=== PATIENT | female | born 1950 | race Caucasian/White ===

== ENCOUNTER 2016-10-21 09:02 | Outpatient (CLI) | END 2016-10-21 09:03 | disposition home or self-care (01) | LOC: LAB 09:02 | PROVIDERS: ATTEND Family Medicine | DX: K92.1 Melena (principal) | CPT/HCPCS: 87015; 87045; 87899 ==

== ENCOUNTER 2017-01-06 07:00 | Day surgery (SDC) ==
[~2017-01-06 07:00] MED LIST: AK-DILATE 10% OPTH SOL OP PRN; BRIMONIDINE TARTRATE 0.2% OPTH SOL OP PRN; MOXIFLOXACIN 150 MCG/0.1 ML-BSS INJ (SURGERY) IO ONE; NIRAVAM ODT (SURGERY) PO PRN; OMIDRIA 1-0.3% IN BSS BAG IO ONE; PRED FORTE 1% OPTH SOL OP ONE; ZOFRAN 4 MG/2 ML IVP ONE
[2017-01-06] MEDS: TETRACAINE 0.5% UNIT-DOSE OP PRN ×2 (07:15→08:36)
[2017-01-06] MEDS: BETADINE OPTH PREP OP PRN ×2 (07:16→08:37)
[2017-01-06] MEDS: CYCLOGYL 2% OPTH OP PRN ×3 (07:17→07:25)
[2017-01-06] MEDS ORDERED: LIDOCAINE 1%/PHENYLEPHRINE 1.5% BSS (SURGERY) IO ONE (08:00)
[2017-01-06] MEDS ORDERED: SUBLIMAZE ONE (08:35)
[2017-01-06] MEDS ORDERED: DIPRIVAN 20 ML VIAL IVP ONE (08:35)
[2017-01-06] MEDS ORDERED: VERSED ONE (08:35)
[2017-01-06] MEDS ORDERED: TORADOL ONE (08:35)
[2017-01-06 16:41] VITALS: BP 136/52; TEMP 96.5
== END 2017-01-06 09:20 | disposition home or self-care (01) ==
LOC: SURG 07:00
PROVIDERS: ATTEND Ophthalmology
DX: H25.811 Combined forms of age-related cataract, right eye (principal)

== ENCOUNTER 2017-04-02 08:43 | Outpatient (CLI) ==
--- NOTE | 2017-04-02 10:48 | MRI ---
EXAM: MRI of the right knee without contrast COMPARISON: None available. HISTORY: Right knee pain. TECHNIQUE: Multiplanar noncontrast MR images of the right knee were acquired using a 1.2 Ashley magne t. Several sequences are mildly limited by patient motion artifact on the coronal T2W fat saturation sequence was repeated. FINDINGS: No recent radiographs of the right knee are available for comparison and radiographic galen elation is recommended. There is no evidence of a surfacing tear of the medial or lateral menisci. Intact anterior and posterior cruciate ligament fibers are identified. Question mucoid degeneration versus minimal sprain of the distal fibers of the anterior cruciate ligament. The medial collateral ligament, lateral collateral ligament complex and posterolateral corner ligaments are intact. Minima l distal quadriceps tendinosis. Patellar tendon is intact. Subcutaneous edema anteriorly. No abnor mal subluxation of the patella. There is thinning and fissuring of the cartilage of the patella with full-thickness defects measuring 0.7 x 0.4 cm along the superior portion of the median ridge with small subchondral cyst. There is a lso a full-thickness cartilage defect along the inferolateral portion of the opposing articular surfa ce of the trochlear groove measuring 1.7 x 0.7 cm with extensive subchondral cystic change/sclerosis at that level. Mild thinning of the cartilage in the medial compartment. Mild thinning of the carti jaret along the posterior portion of the lateral tibial plateau. There is no evidence of an acute fra cture or osteomyelitis. Small joint effusion. Slit-like popliteal cyst. No osteochondral body iden tified. IMPRESSION: 1. Tricompartmental osteoarthrosis with most severe changes in the patellofemoral compartment as jose cribed. 2. Small joint effusion. Slit-like popliteal cyst. 3. Intact menisci. 4. Mucoid degeneration versus minimal sprain of the anterior cruciate ligament with intact fibers id entified. 5. Minimal distal quadriceps tendinosis. Subcutaneous edema anteriorly without a drainable fluid co llection.
--- NOTE | 2017-04-02 18:29 | MRI ---
EXAM: MRI lumbar spine without IV contrast. DATE: 04/02/2017. HISTORY: Sciatica. Lumbar back pain and right leg pain. TECHNIQUE: Sagittal and axial T1W and T2W sequences of the lumbar spine along with sagittal IR and c oronal T2W sequences were obtained using 1.2 Ashley magnet. No IV contrast. COMPARISON: None. FINDINGS: There are five [id number] lumbar vertebra. Mild leftward curvature of the lumbar spi ne is observed. A 1.7 mm anterior subluxation of L2 relative to L3, and the 2.7 mm anterolisthesis o f L5 relative to L4, and 2.8 mm anterolisthesis of S1 relative to L5 are observed. There is also jose roximately 5 mm left lateral subluxation of L3 relative to L4. No other subluxation, acute fracture, osseous malignancy, or pars interarticularis defect is demonstrated. Lumbar vertebrae normal in hei ght. Degenerative endplate changes and patchy areas of fatty infiltration cause bone marrow heteroge neity. Small and prominent osteophytes are noted throughout the lumbar spine. Chronic Schmorl's nod es are seen at L1, L2, L3, and L4. T2W/T1W bright, 11 x 12 mm focus in the L2 body is consistent wit h a benign hemangioma. Moderate L1-2, marked L3-4, marked L4-5, and moderate/marked L5-S1 disc space narrowing is detected. Broad areas of T2W/T1W bright signal within bilateral sacral ala likely repr esent fatty infiltration. No acute sacroiliitis is apparent. Conus medullaris terminates at L1. Vi sible spinal cord is normal. No retroperitoneal lymphadenopathy, paraspinal mass, or aortic aneurysm is identified. Psoas muscles are normal. There is mild bilateral posterior paraspinal muscle atrophy. Visible portions of the l iver, gallbladder, spleen, adrenal glands, and kidneys are normal. Segmental analysis: T11-12: Normal. T12-L1: Small posterior disc bulge does not cause conus compression, central stenosis or foraminal s tenosis. L1-2: Small concentric disc bulge, mild bilateral facet arthropathy, and mild ligamentum flavum hype rtrophy cause mild central canal stenosis, mild right foraminal stenosis, and minor left foraminal en croachment. L2-3: Small concentric disc bulge (asymmetrically prominent in the right foramen to far lateral ellen on), moderate facet arthropathy, and marked ligamentum flavum hypertrophy cause marked central canal stenosis and mild right foraminal stenosis. L3-4: Moderate concentric disc bulge, moderate bilateral facet arthropathy, and moderate ligamentum flavum hypertrophy cause marked central canal stenosis, moderate right foraminal stenosis, and minor left foraminal narrowing. Right L3 nerve root contacts disc bulge near the lateral margin of the for amen. L4-5: Minor anterior subluxation of L5, moderate concentric disc bulge, mild bilateral facet arthrop athy, and moderate ligamentum flavum hypertrophy cause triangulation of the canal, moderate/marked ri ght foraminal stenosis, and marked left foraminal stenosis. Each L4 nerve root contacts the disc bul ge near the lateral margin of the foramen. L5-S1: Minor anterior subluxation of S1, small concentric disc bulge, and mild facet arthropathy cau se marked bilateral foraminal stenosis, with each L5 nerve root contacting disc bulge/osteophyte at t he foramen. No central canal stenosis. IMPRESSIONS: 1. Lumbar spine mild rotatory levoscoliosis, moderate spondylosis, mild/moderate facet arthropathy, multiple mild subluxations, and multilevel DDD. 2. Multilevel central canal stenoses (L1-2: Mild. L2-3: Marked. L3-4: Marked. L4-5: Minor). 3. Multilevel foraminal stenoses. Right L2, both L4, and both L5 nerve roots are compromised near t he foramen and may be sources for pain/radiculopathy. 4. L-spine small, chronic Schmorl's nodes. 5. Benign hemangioma in the L2 vertebra.
== END 2017-04-02 08:44 | disposition home or self-care (01) ==
LOC: RAD 08:43
PROVIDERS: ATTEND Family Medicine
DX: M54.31 Sciatica, right side (principal); M25.561 Pain in right knee

== ENCOUNTER 2017-04-20 08:25 | Outpatient (RCR) | payer OTHER ==
--- NOTE | 2017-04-22 08:54 | RS.OPPTEV2 ---
Date of Note: 04/20/17 Visit #: 1 Date of Evaluation: 04/20/17 Payer Source: MEDICARE Surgery Performed?: No Treatment Diagnosis: spinal stenosis of lumbar region with neurogenic claudication History of Condition/Mechanism of Injury:: pt states that issue began 2 months ago. pt reports pain is primarily in RLE from knee to ankle. Prior Level of Function.....Patient was independent with: Self Care, Caregiving , Ambulation/Mobility, Community Integration/Access Functional Limitations: Carrying, Standing, Bending, Ambulation Current Subjective/complaints:: pt states she has not had any injury to her knowledge. She c/o pain in RLE knee to ankle and occasionally hurts into R hip. States she is unable to stand for long periods of time or walk longer distances. pt also states she is unable to sleep longer than a couple of hours at a time due to pain. Treatment Side (optional): Right *Precautions: n/a Medical History Medical History: Hypertension, Arthritis Surgical History: Hysterectomy Surgical History Comments:: thyroid sx, Smoking Status: Never smoker Diagnostic Testing/Imaging:: MRI of lumbar spine: mild rotatory levoscoliosis, moderate spondylosis, mult. mild subluxations and multilevel DDD. multi level central canal stenosis, multilevel foraminal stenosis, benign hemangioma in L2 vertebra Hx Home Medications: diclofenac, pravastatin, lisinopril/HCTZ, zantac, fish oil , calcium, vit D3 Patient's Goals: decrease pain Pain Assessment - Pain Description Pain Location: R Lower Leg Pain Description: Burning, Aching Current Pain Intensity: 0 at rest, 4 with activity Functional Outcome Measure Oswestry LBP: 19 (38%) LE Functional Scale: 46 (42%) - G Codes & Severity Modifier G Codes & Modifier: mobility current CK. mobility goal CI Source of G Code score: LE functional index Observation - Observation Inspection: hamstring tightness R worse than L Posture: Forward Head, Rounded Shoulders Handedness: Right Gait - Gait Pattern General Gait Pattern Observation: No Deviations/Normal General Range of Motion: ROM WFL'S Muscle Strength: BUE 5/5. RLE hip flex 4+/5, knee flex/ext 4+/5 with pain. LLE 5/5 - ROM Lumbar Flexion: Hand reach to Mid-Shins Sidebending to Left: Reach to Lateral Joint Line Sidebending to Right: Reach to Lateral Joint Line Lumbar Spine ROM Limitations: Soft Tissue Tightness, Pain - Strength Trunk Extension: 5 Normal Trunk Flexion: 4 Good Trunk Lateral Flexion: 4- Good- Trunk Rotation: 4- Good- - Special Tests CRISTINA Test: Negative Left, Negative Right SLR Test: Negative Left, Negative Right Palpation Palpation Findings: Tenderness (R lower leg) Sensation - Sensation Right Upper Extremity: Intact/Normal Left Upper Extremity: Intact/Normal Right Lower Extremity: Impaired Left Lower Extremity: Intact/Normal Comments: reports n/t R lat calf Balance - Sitting Balance Static Sitting Balance: Normal Dynamic Sitting Balance: Normal - Standing Balance Static Standing Balance: Normal Dynamic Standing Balance: Normal - Heat/Cryotherapy Treatment: Cryotherapy Comments:: lumbar area Interventions - Exercise/Activities/Manual Therapy Exercises/Activities: pt performed pelvic tilts, knee to chest, isometric hip flex, isometric hip add Manual Therapy: n/a HOME EXERCISE PROGRAM: pt given written HEP including pelvic tilts, isometric hip flex, single knee to chest, double knee to chest, isometric hip add. - Charges Timed Code Treatment Minutes: 52 Total Treatment Time: 60 Procedures billed for this date of service:: eval med CP EVALUATION COMPLEXITY LEVEL EVALUATION COMPLEXITY LEVEL: HISTORY: Medium (OA, HTN, LBP), EXAM OF BODY SYSTEMS: Medium (neuro, musculo, pain), CLINICAL PRESENTATION: Medium (evolving) , CLINICAL DECISION MAKING: Medium Assessment Assessment: pt presents with radicular pain into RLE especially knee to ankle as well as R hip. Pain is limiting patients ability to perform normal daily activities due to unable to tolerate standing for long amounts of time or walking distances. pt also presents with hamstring tightness, and decreased strength. Patient Education: Home Exercise Program, Education of Plan of Care Rehab Potential: Good Short Term Goals Goal #1: pt rate pain with activity < 4/10 Goal to be met by: 05/04/17 Goal #2: pt demonstrate decreased hamstring tightness to WFL's Goal to be met by: 05/04/17 Assisted Goals Goal #1: pt independent with HEP Goal to be met by: 05/18/17 Goal #2: Report increased tolerance for standing/walking to perform household task Goal to be met by: 05/18/17 Goal #3: pt rate pain <2/10 with activity Goal to be met by: 03/27/18 Goal #4: pt report ability to sleep 4-6 hours without interruption from leg pain Goal to be met by: 05/18/17 Plan - Treatment to be Provided Procedures: Therapeutic Exercises, Therapeutic Activity, Neuromuscular Rehab, Manual Therapy, Massage, Patient Education Modalities: Electrical Stimulation, Ultrasound/Phonophoresis, Class IV Laser, Cryotherapy, Hot Packs - Treatment Plan Frequency: 2 X week Duration: 4 weeks ORDER # VISITS AND/OR THROUGH DATE: 05/18/17 - Treatment Code (1) Spinal stenosis of lumbar region with neurogenic claudication Code(s): M48.06 - SPINAL STENOSIS, LUMBAR REGION * DO NOT USE * (2) Degeneration of lumbar intervertebral disc Code(s): M51.36 - OTHER INTERVERTEBRAL DISC DEGENERATION, LUMBAR REGION (3) Radicular leg pain Code(s): M54.10 - RADICULOPATHY, SITE UNSPECIFIED (4) Muscle tightness Code(s): M62.89 - OTHER SPECIFIED DISORDERS OF MUSCLE
== END 2017-04-21 ==
PROVIDERS: ATTEND Neurological Surgery
DX: M48.062 Spinal stenosis, lumbar region with neurogenic claudication (principal); M51.36 Other intervertebral disc degeneration, lumbar region

== ENCOUNTER 2017-05-12 09:00 | Outpatient (RCR) ==
--- NOTE | 2017-04-22 11:59 | RS.OPPTDN ---
Subjective Date of Note: 04/22/17 Visit #: 2 Date of Evaluation: 04/20/17 Payer Source: MEDICARE Treatment Diagnosis: spinal stenosis of lumbar region with neurogenic claudication Current Subjective/complaints:: Reports some discomfort in the lowback and hip, but c/c is aching in the lower legs. *Precautions: n/a Pain Assessment - Pain Description Pain Location: Lower legs, right greater than left Current Pain Intensity: mild to mod, increases at night - Treatment Modality: Electrical Stim Unattended Parameters/Method Applied: [id number] HVGC to 90p.v. with 4 large pads crossed current to the mid and lowback with HP prior to EX. Patient Position: Sitting - Heat/Cryotherapy Treatment: Hot Pack ([id number] with Estim ) Interventions - Exercise/Activities/Manual Therapy Exercises/Activities: Asssited stretching of the bilateral hamstrings, SKTC, and DKTC. Pelvic tilts, isometric hip flexion and isometric hip add. Ended with additional HS, piriformis, and short LTR stretch. Total minutes of Exercise: 15mins Manual Therapy: NA HOME EXERCISE PROGRAM: pelvic tilts, isometric hip flex, single knee to chest, double knee to chest, isometric hip add. Sitting lumbar flexion stretch with pillow in lap. - Charges Timed Code Treatment Minutes: 15mins Total Treatment Time: 40mins Procedures billed for this date of service:: HP, Estim unattended, EX Assessment: Patient motivated to work on HEP. Patient Education: Education of diagnosis, Body/Joint mechanics, Home Exercise Program, Home Safety, Activity Modification, Education of Plan of Care Comments: Patient education of dx, mechanics, safety with ADL's, and HEP. Patient demonstrates compliance with HEP?: Yes Short Term Goals Goal #1: pt rate pain with activity < 4/10 Goal to be met by: 05/04/17 Goal #2: pt demonstrate decreased hamstring tightness to WFL's Goal to be met by: 05/04/17 Underwear Trimmer Goals Goal #1: pt independent with HEP Goal to be met by: 05/18/17 Goal #2: Report increased tolerance for standing/walking to perform household task Goal to be met by: 05/18/17 Goal #3: pt rate pain <2/10 with activity Goal to be met by: 05/18/17 Goal #4: pt report ability to sleep 4-6 hours without interruption from leg pain Goal to be met by: 05/18/17 Plan PLAN OF CARE EXPIRES ON:: 05/18/17 ORDER # VISITS AND/OR THROUGH DATE: 05/18/17 PLAN: Progress with flexion exercise in attempt to reduce pain and radicular symptoms.
--- NOTE | 2017-04-27 14:56 | RS.OPPTDN ---
Subjective Date of Note: 04/27/17 Visit #: 3 Date of Evaluation: 04/20/17 Payer Source: MEDICARE Treatment Diagnosis: spinal stenosis of lumbar region with neurogenic claudication Current Subjective/complaints:: Patient reports she has noticed she is sleeping better at night. States she is working on HEP. *Precautions: n/a Pain Assessment - Pain Description Pain Location: Lowback and right lower leg Pain Description: Tightness, Aching Current Pain Intensity: mild - Treatment Modality: Electrical Stim Unattended Parameters/Method Applied: [id number] HVGC to 110p.v. 4 large pads cross current with HP to the lowback prior to EX. Patient Position: Sitting - Heat/Cryotherapy Treatment: Hot Pack ([id number] with Estim) Interventions - Exercise/Activities/Manual Therapy Exercises/Activities: Asssited stretching of the bilateral hamstrings, SKTC, and DKTC. Pelvic tilts, isometric hip flexion and isometric hip add. Ended with additional stretching, including LTR. Total minutes of Exercise: 15mins Manual Therapy: NA HOME EXERCISE PROGRAM: pelvic tilts, isometric hip flex, single knee to chest, double knee to chest, isometric hip add. Sitting lumbar flexion stretch with pillow in lap. - Charges Timed Code Treatment Minutes: 15mins Total Treatment Time: 40mins Procedures billed for this date of service:: HP, Estim unattended, EX Assessment: Patient reporting progress with sleeping at night. She is motivated to work on HEP. Patient Education: Education of diagnosis, Body/Joint mechanics, Home Exercise Program, Home Safety Patient demonstrates compliance with HEP?: Yes Short Term Goals Goal #1: pt rate pain with activity < 4/10 Goal to be met by: 05/04/17 Progress towards Goal:: Progressing Goal #2: pt demonstrate decreased hamstring tightness to WFL's Goal to be met by: 05/04/17 Progress towards Goal:: Progressing Supervisor Cytology Goals Goal #1: pt independent with HEP Goal to be met by: 05/18/17 Progress towards goal: Progressing Goal #2: Report increased tolerance for standing/walking to perform household task Goal to be met by: 05/18/17 Goal #3: pt rate pain <2/10 with activity Goal to be met by: 05/18/17 Goal #4: pt report ability to sleep 4-6 hours without interruption from leg pain Goal to be met by: 05/18/17 Progress towards goal: Progressing Plan PLAN OF CARE EXPIRES ON:: 05/18/17 ORDER # VISITS AND/OR THROUGH DATE: 05/18/17 PLAN: Continue modalities and progress flexion exercises to reduce pain and increase functional activity.
--- NOTE | 2017-04-29 16:37 | RS.OPPTDN ---
Subjective Date of Note: 04/29/17 Visit #: 4 Date of Evaluation: 04/20/17 Payer Source: MEDICARE Treatment Diagnosis: spinal stenosis of lumbar region with neurogenic claudication Current Subjective/complaints:: Patient reports she is doing better and is sleeping better at night. *Precautions: n/a Pain Assessment - Pain Description Pain Location: Right lower leg, lowback Pain Description: Aching Current Pain Intensity: mild - Treatment Modality: Electrical Stim Unattended Parameters/Method Applied: [id number] HVGC to 150p.v. with 4 large pads cross current to the bilateral lumbar paraspinals with HEP prior to EX. Patient Position: Supine - Heat/Cryotherapy Treatment: Hot Pack ([id number] with Estim ) Interventions - Exercise/Activities/Manual Therapy Exercises/Activities: Asssited stretching of the bilateral hamstrings, SKTC, and DKTC. Pelvic tilts, isometric hip flexion and isometric hip add. Alt hip flexion. Ended with additional stretching, including LTR. Total minutes of Exercise: 15mins Manual Therapy: NA HOME EXERCISE PROGRAM: pelvic tilts, isometric hip flex, single knee to chest, double knee to chest, isometric hip add. Sitting lumbar flexion stretch with pillow in lap. - Charges Timed Code Treatment Minutes: 15mins Total Treatment Time: 40mins Procedures billed for this date of service:: HP, Estim unattended, EX Assessment: Patient responding to treatment with reports of improvement in sleeping at night. Patient Education: Education of diagnosis, Body/Joint mechanics, Home Exercise Program Patient demonstrates compliance with HEP?: Yes Short Term Goals Goal #1: pt rate pain with activity < 4/10 Goal to be met by: 05/04/17 Progress towards Goal:: Progressing Goal #2: pt demonstrate decreased hamstring tightness to WFL's Goal to be met by: 05/04/17 Progress towards Goal:: Progressing Chcf Goals Goal #1: pt independent with HEP Goal to be met by: 05/18/17 Progress towards goal: Progressing Goal #2: Report increased tolerance for standing/walking to perform household task Goal to be met by: 05/18/17 Progress towards goal: Progressing Goal #3: pt rate pain <2/10 with activity Goal to be met by: 05/18/17 Goal #4: pt report ability to sleep 4-6 hours without interruption from leg pain Goal to be met by: 05/18/17 Progress towards goal: Progressing Plan PLAN OF CARE EXPIRES ON:: 05/18/17 ORDER # VISITS AND/OR THROUGH DATE: 05/18/17 PLAN: Contine modalities and progress exercise to reduce pain and radicular symptoms.
--- NOTE | 2017-05-04 14:00 | RS.OPPTDN ---
Subjective Date of Note: 05/04/17 Visit #: 5 Date of Evaluation: 04/20/17 Payer Source: MEDICARE Treatment Diagnosis: spinal stenosis of lumbar region with neurogenic claudication Current Subjective/complaints:: Patient reports continued improvement in symptoms since starting therapy. She reports she was able to do some house cleaning over the weekend without increasing her symptoms. She reports no lower right leg pain following treatment today. *Precautions: n/a Pain Assessment - Pain Description Pain Location: lowback, right lower leg Current Pain Intensity: mild discomfort Other Comments regarding Pain:: Reports no pain following treatment today. - Treatment Modality: Electrical Stim Unattended Parameters/Method Applied: [id number] HVGC to 155p.v. with 4 large pads, cross current, to the bilateral lumbar paraspinals with HP prior to EX. Patient Position: Sitting - Heat/Cryotherapy Treatment: Hot Pack (with Estim ) Interventions - Exercise/Activities/Manual Therapy Exercises/Activities: Asssited stretching of the bilateral hamstrings, SKTC, and DKTC. Pelvic tilts, isometric hip flexion and isometric hip add. Alt hip flexion. Red theraband for hip add and hip abd in hook-lying. Resistive short trunk rotation with red theraband. Ended with additional stretching, including LTR. Total minutes of Exercise: 18mins Manual Therapy: NA HOME EXERCISE PROGRAM: pelvic tilts, isometric hip flex, single knee to chest, double knee to chest, isometric hip add. Sitting lumbar flexion stretch with pillow in lap. - Charges Timed Code Treatment Minutes: 18mins Total Treatment Time: 45mins Procedures billed for this date of service:: HP, Estim unattended, EX Assessment: Patient progressing with with reports of reduction of pain and increase in ADL's the last few days. Patient Education: Home Exercise Program Patient demonstrates compliance with HEP?: Yes Short Term Goals Goal #1: pt rate pain with activity < 4/10 Goal to be met by: 05/04/17 Progress towards Goal:: Progressing Goal #2: pt demonstrate decreased hamstring tightness to WFL's Goal to be met by: 05/04/17 Progress towards Goal:: Progressing Crude Oil Treater Goals Goal #1: pt independent with HEP Goal to be met by: 05/18/17 Progress towards goal: Progressing Goal #2: Report increased tolerance for standing/walking to perform household task Goal to be met by: 05/18/17 Progress towards goal: Progressing Goal #3: pt rate pain <2/10 with activity Goal to be met by: 05/18/17 Goal #4: pt report ability to sleep 4-6 hours without interruption from leg pain Goal to be met by: 05/18/17 Progress towards goal: Progressing Plan PLAN OF CARE EXPIRES ON:: 05/18/17 ORDER # VISITS AND/OR THROUGH DATE: 05/18/17 PLAN: Progress with exercise.
--- NOTE | 2017-05-06 13:28 | RS.OPPTDN ---
Subjective Date of Note: 05/06/17 Visit #: 6 Date of Evaluation: 04/20/17 Payer Source: MEDICARE Treatment Diagnosis: spinal stenosis of lumbar region with neurogenic claudication Current Subjective/complaints:: Patient reports she is now sleeping through most of the night. She continues to increase light daily activities in her home without aggravating LB and right LE radicular symptoms. She does report discomfort at the right hip, but states it is mild today. Patient states her pain is "remarkably better". *Precautions: n/a Pain Assessment - Pain Description Pain Location: LB, right lower leg Current Pain Intensity: no pain following treatment and exercise - Treatment Modality: Electrical Stim Unattended Parameters/Method Applied: [id number] HVGC to 145 p.v. with 4 large pads, cross current, to the bilateral lumbar paraspinals and S-I joints. Patient Position: Sitting - Heat/Cryotherapy Treatment: Hot Pack (with Estim) Interventions - Exercise/Activities/Manual Therapy Exercises/Activities: Asssited stretching of the bilateral hamstrings, SKTC, and DKTC. Pelvic tilts, isometric hip flexion and isometric hip add. Alt hip flexion. Red theraband for hip add and hip abd in hook-lying. Resistive short trunk rotation with red theraband. Alt hip flexion. Ended with additional stretching, including LTR. Total minutes of Exercise: 15mins Manual Therapy: NA HOME EXERCISE PROGRAM: pelvic tilts, isometric hip flex, single knee to chest, double knee to chest, isometric hip add. Sitting lumbar flexion stretch with pillow in lap. - Charges Timed Code Treatment Minutes: 15mins Total Treatment Time: 40mins Procedures billed for this date of service:: HP, Estim unattended, EX Assessment: Focus of treatment on stretching and patient education of body mechanics with ADL's. Patient Education: Body/Joint mechanics, Home Exercise Program, Home Safety, Activity Modification Comments: Patient education safety and body mechanics. Answered patients questions concerning homt TENS unit. Patient demonstrates compliance with HEP?: Yes Short Term Goals Goal #1: pt rate pain with activity < 4/10 Goal to be met by: 05/04/17 Progress towards Goal:: Partially Met Goal #2: pt demonstrate decreased hamstring tightness to WFL's Goal to be met by: 05/04/17 Progress towards Goal:: Partially Met Retirement Goals Goal #1: pt independent with HEP Goal to be met by: 05/18/17 Progress towards goal: Partially Met Goal #2: Report increased tolerance for standing/walking to perform household task Goal to be met by: 05/18/17 Progress towards goal: Partially Met Goal #3: pt rate pain <2/10 with activity Goal to be met by: 05/18/17 Progress towards goal: Partially Met Goal #4: pt report ability to sleep 4-6 hours without interruption from leg pain Goal to be met by: 05/18/17 Progress towards goal: Met Plan PLAN OF CARE EXPIRES ON:: 05/18/17 ORDER # VISITS AND/OR THROUGH DATE: 05/18/17 PLAN: continue and progress exercise to reduce pain and increase functional activity level.
--- NOTE | 2017-05-12 15:42 | RS.OPPTDN ---
Subjective Date of Note: 05/12/17 Visit #: 7 Date of Evaluation: 04/20/17 Payer Source: MEDICARE Treatment Diagnosis: spinal stenosis of lumbar region with neurogenic claudication Current Subjective/complaints:: Patient reports doing much better. States she has periods of no back pain or right lower leg pain/radicular symptoms. *Precautions: n/a Pain Assessment - Pain Description Pain Location: Lowback and right lower leg Current Pain Intensity: no pain following therapy Worst Pain Intensity: only mild discomfort right lower leg - Treatment Modality: Electrical Stim Unattended Parameters/Method Applied: [id number] HVGC to 140-150p.v. with 4 large pads, cross current to the lowback with HP prior to EX. Patient Position: Sitting - Heat/Cryotherapy Treatment: Hot Pack (with Estim) Interventions - Exercise/Activities/Manual Therapy Exercises/Activities: Asssited stretching of the bilateral hamstrings, SKTC, and DKTC. Pelvic tilts, isometric hip flexion and isometric hip add. Alt hip flexion. Red theraband for hip add and hip abd in hook-lying. Resistive short trunk rotation with red theraband. Alt hip flexion. Ended with additional stretching. Reveiwed HEP and patient education of body mechanics and safe lifting. Total minutes of Exercise: 15mins Manual Therapy: NA HOME EXERCISE PROGRAM: pelvic tilts, isometric hip flex, single knee to chest, double knee to chest, isometric hip add. Sitting lumbar flexion stretch with pillow in lap. - Objective Findings Observations,measurements,etc.: Patient improved FOM scores on Oswestry 9 or 18 % deficit (was 19 or 38% on Eval) and LE functional scale 59/80 or 26.25% (was 46/80 or 42% on Eval) - Charges Timed Code Treatment Minutes: 15mins Total Treatment Time: 40mins Procedures billed for this date of service:: HP, Estim unattended, EX Assessment: Patient has progressed well and benefitted from treatment. She has increased her FOM scores, met all treatment goals, and is independent with HEP. Patient Education: Body/Joint mechanics, Home Exercise Program, Home Safety, Activity Modification, Education of Plan of Care Patient demonstrates compliance with HEP?: Yes Short Term Goals Goal #1: pt rate pain with activity < 4/10 Goal to be met by: 05/04/17 Progress towards Goal:: Met Goal #2: pt demonstrate decreased hamstring tightness to WFL's Goal to be met by: 05/04/17 Progress towards Goal:: Met Care Home Goals Goal #1: pt independent with HEP Goal to be met by: 05/18/17 Progress towards goal: Met Goal #2: Report increased tolerance for standing/walking to perform household task Goal to be met by: 05/18/17 Progress towards goal: Met Goal #3: pt rate pain <2/10 with activity Goal to be met by: 05/18/17 Progress towards goal: Met Goal #4: pt report ability to sleep 4-6 hours without interruption from leg pain Goal to be met by: 05/18/17 Progress towards goal: Met Plan PLAN OF CARE EXPIRES ON:: 05/18/17 ORDER # VISITS AND/OR THROUGH DATE: 05/18/17 PLAN: Discharge with HEP.
--- NOTE | 2017-05-24 15:54 | RS.OPPTDC ---
Date of Discharge: 05/12/17 Date of Evaluation: 04/20/17 Number of Visits: 7 Treatment Diagnosis: spinal stenosis of lumbar region with neurogenic claudication Current Level of Function: pt with improved hamstring length. LE strength 4+ to 5/5. pt is independent with HEP. Current Complaints/Gains: pt reports she is much better. No pain in lower back with only occasional mild discomfort in RLE. pt states she is able to perform most ADL's without increased pain or radiculopathy. pt states she is doing her HEP and is agreeable to dc. Pain Assessment - Pain Description Pain Location: low back and LE pain Current Pain Intensity: <2 Functional Outcome Measure Oswestry LBP: 9 (38%) LE Functional Scale: 59 (26%) - G Codes & Severity Modifier G Codes & Modifier: mobility DC CJ. mobility goal CI Source of G Code score: ostwestry, LE functional scale Observation - Observation Posture: Forward Head, Rounded Shoulders Handedness: Right Gait - Gait Pattern General Gait Pattern Observation: No Deviations/Normal General Range of Motion: WFL's Muscle Strength: LE 4+ to 5/5 Interventions - Exercise/Activities/Manual Therapy Exercises/Activities: n/a Manual Therapy: NA HOME EXERCISE PROGRAM: pelvic tilts, isometric hip flex, single knee to chest, double knee to chest, isometric hip add. Sitting lumbar flexion stretch with pillow in lap. - Charges Timed Code Treatment Minutes: n/a Total Treatment Time: n/a Procedures billed for this date of service:: n/a Assessment Assessment: pt has met all goals. pt is independent with HEP and increased hamstring length to WFL's. Patient Education: Home Exercise Program, Activity Modification, Education of Plan of Care Rehab Potential: Good Short Term Goals Goal #1: pt rate pain with activity < 4/10 Goal to be met by: 05/04/17 Progress towards Goal:: Met Goal #2: pt demonstrate decreased hamstring tightness to WFL's Goal to be met by: 05/04/17 Progress towards Goal:: Met Twisting [employer] End Finder Goals Goal #1: pt independent with HEP Goal to be met by: 05/18/17 Progress towards goal: Met Goal #2: Report increased tolerance for standing/walking to perform household task Goal to be met by: 05/18/17 Progress towards goal: Met Goal #3: pt rate pain <2/10 with activity Goal to be met by: 05/18/17 Progress towards goal: Met Goal #4: pt report ability to sleep 4-6 hours without interruption from leg pain Goal to be met by: 05/18/17 Progress towards goal: Met Plan Reason for Discharge:: All Goals Met
== END 2017-05-22 ==
PROVIDERS: ATTEND Neurological Surgery
DX: M48.062 Spinal stenosis, lumbar region with neurogenic claudication (principal); M51.36 Other intervertebral disc degeneration, lumbar region

== ENCOUNTER 2017-06-03 21:10 | Emergency (ER) ==
[2017-06-03 21:24] VITALS: BP 115/76; TEMP 97.5; BMI 31.0
[2017-06-03] MEDS ORDERED: MORPHINE 4 MG/ML VIAL IVP STA (21:50)
[2017-06-03] MEDS ORDERED: ZOFRAN 4 MG/2 ML IVP STA (21:50)
[2017-06-03] MEDS ORDERED: SODIUM CHLORIDE 1,000 ML IV STA (21:50)
--- NOTE | 2017-06-03 21:50 | ED.PDOC ---
General ED Provider: Dr. CLAYTON ZEE Chief Complaint: Back Pain Stated Complaint: Has constant pain to left mid back, does not radiate hurts to walk or sit is nauseated without emesis has used heating pad at home, helped some but came back. Time Seen by Physician: 21:30 Mode of Arrival: Walk-In Information Source: Patient Primary Care Provider: WANDA CARDOSO Nursing and Triage Documentation Reviewed and Agree: Yes Reviewed sepsis parameters & appropriate labs ordered?: No System Inflammatory Response Syndrome: Not Applicable Sepsis Protocol: For patient's 13 years and over: Temp is 96.8 and below OR 101 and greater Pulse >90 BPM Resp >20/minute Acutely Altered Mental Status Are patient's symptoms suggestive of a new infection, such as: -Pneumonia -Skin, Soft Tissue -Endocarditis -UTI -Bone, Joint Infection -Implantable Device -Acute Abdominal Infection -Wound Infection -Meningitis -Blood Stream Catheter Infection -Unknown System Inflammatory Response Syndrome: Not Applicable Review of Systems - Review Of Systems Constitutional: Reports: No symptoms Respiratory: Reports: No symptoms Cardiac: Reports: No symptoms GI: Reports: No symptoms Musculoskeletal: Reports: Back pain Neurological: Reports: Anxiety All Other Systems: Reviewed and Negative Past Medical History - Past Medical History Endocrine: Reports: Hyperthyroid (had radioactive Iodine) Cardiovascular: Reports: Hypertension Respiratory: Reports: None Hematological: Reports: None Gastrointestinal: Reports: GERD Genitourinary: Reports: None Neuro/Psych: Reports: None Musculoskeletal: Reports: None Cancer: Reports: None Last Menstrual Period: PT HAS HAD A HYSTERECTOMY - Surgical History General Surgical History: Reports: Hysterectomy - Family History Family History: Reports: Unknown - Social History Smoking Status: Never smoker Hx Substance Use: No Alcohol Screening: None - Immunizations Tetanus Shot up to Date: No Physical Exam - Physical Exam Appearance: Ill-appearing Pain Distress: Severe Eyes: CATHY, EOMI, Conjunctiva clear Neck: Supple Respiratory: Airway patent, Breath sounds clear, Breath sounds equal, Respirations nonlabored Cardiovascular: RRR, Pulses normal, No rub, No murmur GI/: Soft, Nontender, No masses, Bowel sounds normal, No Organomegaly Musculoskeletal: Normal strength, ROM intact, No edema, No calf tenderness Skin: Warm, Dry, Normal color Neurological: Sensation intact, Motor intact, Reflexes intact, Cranial nerves intact, Alert, Oriented Psychiatric: Anxious Interpretation - Radiology Interpretation Radiology Interpretation By: Radiologist Radiology Results: Negative Exam Interpreted: CT Scan (abdomen and pelvis ) Critical Care Note - Critical Care Note Total Time (mins): 0 Course - Course Hematology/Chemistry: 06/03/17 22:14 06/03/17 22:14 Orders, Labs, Meds: Lab Review 06/03/17 06/03/17 06/03/17 21:33 22:14 22:14 WBC 7.88 RBC 3.88 L Hgb 12.6 Hct 36.8 L MCV 94.8 MCH 32.5 H MCHC 34.2 RDW Coeff of Luis Angel 12.9 Plt Count 280 Immature Gran % (Auto) 0.3 Neut % (Auto) 71.6 Lymph % (Auto) 18.9 [place] % (Auto) 6.3 Eos % (Auto) 2.4 Baso % (Auto) 0.5 Immature Gran # (Auto) 0.0 Neut # (Auto) 5.6 Lymph # (Auto) 1.5 [place] # (Auto) 0.5 Eos # (Auto) 0.2 Baso # (Auto) 0.0 Sodium 143 Potassium 3.8 Chloride 106 Carbon Dioxide 26 Anion Gap 14.8 BUN 28 H Creatinine 0.93 Estimated GFR (MDRD) 61.00 BUN/Creatinine Ratio 30.10 Glucose 104 Calcium 9.7 Total Bilirubin 0.4 AST 18 ALT 23 Alkaline Phosphatase 87 Total Protein 6.8 Albumin 3.7 Globulin 3.1 Albumin/Globulin Ratio 1.19 Amylase 40 Lipase 22 Urine Color Yellow Urine Clarity Clear Urine pH 6.0 Ur Specific [place] >=1.030 Urine Protein Negative Urine Glucose (UA) Negative Urine Ketones Trace Urine Blood Negative Urine Nitrite Negative Urine Bilirubin Negative Urine Urobilinogen 0.2 Ur Leukocyte Esterase Trace Urine Microscopic RBC 0-2 Urine Microscopic WBC 5-10 Ur Squamous Epith Cells 2-5 Urine Bacteria 1+ Urine Mucus 1+ Orders Category Date Time Status ED IV/MEDIPORT/POWERPORT .ONCE EMERGENCY 06/03/17 21:50 Active AMYLASE Stat LAB 06/03/17 22:14 Completed CBC W/ AUTO DIFF Stat LAB 06/03/17 22:14 Completed COMPREHENSIVE METABOLIC PANEL Stat LAB 06/03/17 22:14 Completed LIPASE Stat LAB 06/03/17 22:14 Completed URINALYSIS C & S IF INDICATED Stat LAB 06/03/17 21:33 Completed URINE CULTURE Stat LAB 06/03/17 21:33 Completed 0.9 % Sodium Chloride [Saline Flush] MEDS 06/03/17 21:50 Discontinued 1 syr IVF PRN PRN Ed After Hour Supply Med [Ed After Hours Supply Med MEDS 06/04/17 01:36 Discontinued Sent Home] 1 each PO ONCE ONE Hydrocodone Bit/Acetaminophen [[place] 5-325] MEDS 06/04/17 01:48 Discontinued 2 tab .ROUTE .STK-MED ONE Levofloxacin/D5w [Levaquin] 100 ml MEDS 06/04/17 00:16 Discontinued IV .STK-MED Levofloxacin/D5w [Levaquin] 500 mg MEDS 06/04/17 00:12 Discontinued Premix 100 ml D5w 1 bag IV ONCE Morphine Sulfate [Morphine 4 mg/ml Syringe] MEDS 06/03/17 21:56 Discontinued 4 mg .ROUTE .STK-MED ONE Morphine Sulfate [Morphine 4 mg/ml Vial] MEDS 06/03/17 21:50 Discontinued 4 mg IVP ONCE STA Ondansetron HCl/Pf [Zofran 4 mg/2 ml] MEDS 06/03/17 21:50 Discontinued 4 mg IVP ONCE STA Sodium Chloride 0.9% [Sodium Chloride] 1,000 ml MEDS 06/03/17 21:[address] ABD/PEL WO RENAL STONE PROT Stat RADS 06/03/17 21:50 Completed Medications Discontinued Medications Generic Name Dose Route Start Last Admin Trade Name Freq PRN Reason Stop Dose Admin Sodium Chloride 1,000 mls @ 1,000 mls/hr 06/03/17 21:50 06/03/17 22:17 Sodium Chloride IV 06/03/17 22:49 1,000 mls/hr BOLUS STA Administration Levofloxacin/Dextrose 500 mg/ 100 mls @ 100 mls/hr 06/04/17 00:12 06/04/17 00 :21 Dextrose IV 06/04/17 01:11 100 mls/hr ONCE STA Administration Miscellaneous Information 1 each 06/04/17 01:36 06/04/17 02:05 Ed After Hours Supply Med Sent Home PO 06/04/17 01:37 Not Given ONCE ONE Protocol Morphine Sulfate 4 mg 06/03/17 21:50 06/03/17 22:23 Morphine 4 Mg/Ml Vial IVP 06/03/17 21:51 Not Given ONCE STA Ondansetron HCl 4 mg 06/03/17 21:50 06/03/17 22:19 Zofran 4 Mg/2 Ml IVP 06/03/17 21:51 4 mg ONCE STA Administration Sodium Chloride 1 syr 06/03/17 21:50 06/03/17 22:23 Saline Flush IVF 1 syr PRN PRN Administration To flush IV Vital Signs: Temp Pulse Resp BP Pulse Ox 06/03/17 21:10 97.5 F L 64 18 115/76 98 Departure - Departure Time of Disposition: 01:31 Disposition: HOME SELF-CARE Discharge Problem: Pyelonephritis Instructions: Urinary Tract Infection in Women (ED), Flank Pain (ED) Condition: Fair Pt referred to PMD for follow-up: Yes IPMP verified?: No Additional Instructions: Take medication as prescribed Follow up with PCP in 3 day Prescriptions: Hydrocodone/Acetaminophen [[place] 5-325 Tablet] 1 tab PO Q6HR PRN #12 tablet PRN Reason: PAIN Levofloxacin [Levaquin] 500 mg PO DAILY #10 tablet Phenazopyridine HCl [Pyridium] 100 mg PO TID PRN #10 tablet PRN Reason: Urinary Burning. Allergies/Adverse Reactions: Allergies No Known Allergies Allergy (Verified 06/03/17 21:24) Home Medications: Ambulatory Orders Calcium Carb, Citrate/Vit D3 [Calcium + D3 ER Tablet] 1 each PO DAILY 12/23/16 Diclofenac Sodium 75 mg PO BID 12/23/16 Lisinopril/Hydrochlorothiazide [Lisinopril-Hctz 10-12.5 mg Tab] 1 each PO DAILY 12/23/16 [place]-3 Fatty Acids/Fish Oil [Fish Oil 1,000 mg Capsule] 1 each PO DAILY Pravastatin Sodium [Pravachol] 40 mg PO BEDTIME 12/23/16 Ranitidine HCl [Zantac] 150 mg PO BIDAC 12/23/16 Propylene Glycol/Peg 400 [Systane 0.3-0.4% Eye Drops] 1 drop OP BID 06/03/17 Hydrocodone/Acetaminophen [[place] 5-325 Tablet] 1 tab PO Q6HR PRN #12 tablet Levofloxacin [Levaquin] 500 mg PO DAILY #10 tablet 06/04/17 Phenazopyridine HCl [Pyridium] 100 mg PO TID PRN #10 tablet 06/04/17 Disposition Discussed With: Patient
[2017-06-03] MEDS ORDERED: MORPHINE 4 MG/ML SYRINGE ONE (21:56)
--- NOTE | 2017-06-03 23:33 | CT ---
EXAM: CT abdomen pelvis without intravenous contrast 06/03/2017. Sagittal and coronal reformatted i mages obtained HISTORY: Left flank pain COMPARISON: None. FINDINGS: The liver, gallbladder, adrenal glands and kidneys show no acute abnormality. There is no evidence of urinary obstruction. There is no hydronephrosis. There is likely a peripelvic cyst at t he lower pole of the left kidney which appears similar to MRI performed 04/02/2017. The spleen pancreas show no acute abnormality. No bowel obstruction. Normal appendix. Unremarkable urinary bladder. Severe degenerative disc disease of the spine. There is multilevel severe spinal and neural foramina l stenosis. IMPRESSION: 1. No urinary or bowel obstruction and normal appendix. 2. No acute inflammatory process within the abdomen or pelvis within the limitation of a noncontrast enhanced examination. 3. Severe degenerative disc disease of the lumbar spine. Multilevel severe spinal and neural forami nal stenosis. Please refer to report of recent MRI performed 04/02/2017.
[2017-06-04] MEDS ORDERED: LEVAQUIN 500 MG in PREMIX 100 ML D5W 1 BAG IV STA (00:12)
[2017-06-04] MEDS ORDERED: LEVAQUIN 100 ML IV ONE (00:16)
[2017-06-04] MEDS ORDERED: ED AFTER HOURS SUPPLY MED SENT HOME PO ONE (01:36)
[2017-06-04] MEDS ORDERED: NORCO 5-325 ONE (01:48)
== END 2017-06-04 01:55 | disposition home or self-care (01) ==
LOC: ED 21:10
DX: N12 Tubulo-interstitial nephritis, not specified as acute or chronic (principal); I10 Essential (primary) hypertension; E05.90 Thyrotoxicosis, unspecified without thyrotoxic crisis or storm
CPT/HCPCS: 36415; 74176; 80053; 81001; 82150; 83690; 85025; 87086; 96361; 96365; 96375; 99283

== ENCOUNTER 2017-11-12 11:07 | Outpatient (CLI) | END 2017-11-12 11:08 | disposition home or self-care (01) | LOC: LAB 11:07 | PROVIDERS: ATTEND Family Medicine | DX: M25.512 Pain in left shoulder (principal) | CPT/HCPCS: 36415; 82550; 84484; 93005; 93010 ==

== ENCOUNTER 2017-11-16 07:31 | Outpatient (CLI) ==
--- NOTE | 2017-11-16 08:26 | US ---
EXAM: Limited abdominal ultrasound. History: Elevated liver enzymes. Comparison: CT abdomen pelvis 06/03/2017 Technique: Multiple sonographic images through the abdomen were obtained. Color duplex Doppler was used to interrogate vascular flow. Findings: The liver is not enlarged. The periportal echoes within the liver are maintained. No foc al liver lesions identified sonographically. Visualized pancreas demonstrates no gross abnormality. No abdominal ascites. There is antegrade flow within the main portal vein. No shadowing gallstones . Gallbladder wall is not thickened. Common bile duct measures 0.3 cm in caliber. Limited visualiz ation of the right kidney demonstrates no evidence for hydronephrosis. Impression: Unremarkable exam
== END 2017-11-16 07:32 | disposition home or self-care (01) ==
LOC: RAD 07:31
PROVIDERS: ATTEND Family Medicine
DX: R74.8 Abnormal levels of other serum enzymes (principal)

== ENCOUNTER 2017-11-19 10:30 | Outpatient (CLI) | payer OTHER ==
--- NOTE | 2017-11-19 11:44 | DI ---
EXAM: Two views of the chest. History: Left shoulder pain and chest pain. Findings: Heart size is upper limits of normal. No focal consolidation. No appreciable pleural flu id and no pneumothorax. No acute osseous abnormalities. Impression: No acute cardiopulmonary process
--- NOTE | 2017-11-19 11:44 | DI ---
EXAM: Three views of the cervical spine. History: Neck pain and left shoulder pain. Findings: No acute fracture. No prevertebral soft tissue swelling. Predental space is not widened. 4 mm anterolisthesis of C3 on C4. Severe disc space narrowing at C4-5 and moderate to severe disc s pace narrowing at C5-6 and C6-7 with endplate sclerosis and osteophyte formation. Impression: 1. No acute fracture. 2. Grade 1 anterolisthesis of C3 on C4. 3. Degenerative disc disease
--- NOTE | 2017-11-19 11:45 | DI ---
EXAM: Three views of the left shoulder. History: Left shoulder pain. Findings: No acute fracture or dislocation. No abnormal calcifications or radiopaque foreign bodies . Mild narrowing of the left AC joint and mild narrowing of the left glenohumeral joint with tiny os teophytes. Impression: 1. No acute osseous abnormality. 2. Mild arthritis of the left AC joint and left glenohumeral joint.
== END 2017-11-19 10:31 | disposition home or self-care (01) ==
LOC: RAD 10:30
PROVIDERS: ATTEND Family Medicine
DX: M25.512 Pain in left shoulder (principal)